=== PATIENT | female | born 1995 | race Caucasian/White ===

== ENCOUNTER → 2017-12-10 07:15 | Outpatient (CLI) | payer MEDICAID ==
[2015-03-12 04:56] VITALS: BMI 38.8
[~2017-12-10 07:15] MED LIST: HYDROCODON-ACE1 EAC7 PO; IBUPROFEN600 MG PO; PRENAVITE1 TAB PO
[2017-12-10 09:22] LABS: APPEARANCE SLT CLOUDY (CLEAR); BILIRUBIN NEGATIVE (NEGATIVE); COLOR YELLOW (YELLOW); GLUCOSE NEGATIVE (NEGATIVE); KETONE NEGATIVE (NEGATIVE); NITRITE NEGATIVE (NEGATIVE); PROTEIN NEGATIVE (NEGATIVE); UROBILINOGEN NORMAL (NORMAL); WHITE CELLS - URINE 0-5 /hpf (0-5)
[2017-12-10 09:23] LABS: BACTERIA MODERATE /hpf (NONE SEEN); GRANULAR CAST OCC /lpf (NONE SEEN); MUCUS <1+ /lpf (NONE SEEN)
== END | disposition home or self-care (01) ==
LOC: D.LDO 07:15
PROVIDERS: Obstetrics & Gynecology
DX: O21.9 Vomiting of pregnancy, unspecified (principal); Z3A.00 Weeks of gestation of pregnancy not specified

== ENCOUNTER 2018-01-20 05:26 | Outpatient (CLI) | payer MEDICAID ==
[~2018-01-20] VITALS: Ht 160 cm; Wt 103.6 kg
[2018-01-20] MEDS ORDERED: ACETAMINOPHEN500 M1 PO (05:52)
[2018-01-20 06:24] VITALS: BP 122/71; Ht 160 cm; Wt 103.6 kg
[2018-01-20 06:46] LABS: HEMATOCRIT 35.6 % (36.0-48.0); HEMOGLOBIN 12.2 g/dL (12-16); MCH 31.5 pg (26.0-34.0); MCHC 34.3 g/dL (31.0-37.0); MEAN PLATELET VOLUME 11.2 fL (7.4-10.4); RBC 3.87 10x6/uL (4.00-5.40); RDW 13.6 % (11.5-14.5); WBC 7.5 10x3/uL (4.8-10.8)
[2018-01-20 07:25] LABS: APPEARANCE CLOUDY (CLEAR); BILIRUBIN NEGATIVE (NEGATIVE); COLOR YELLOW (YELLOW); GLUCOSE NEGATIVE (NEGATIVE); KETONE NEGATIVE (NEGATIVE); NITRITE NEGATIVE (NEGATIVE); PROTEIN NEGATIVE (NEGATIVE); UROBILINOGEN NORMAL (NORMAL)
[2018-01-20 07:26] LABS: BACTERIA MODERATE /hpf (NONE SEEN); MUCUS <1+ /lpf (NONE SEEN)
[2018-01-21 06:15] LABS: RAPID PLASMA REAGIN Non Reactive (Non Reactive)
== END 2018-01-20 18:30 | disposition home or self-care (01) ==
LOC: UNDOADMIN 05:26 → D.OPS 05:26 → D.LD 05:26 → D.OPS 18:30 → D.LD 18:30 → EDSTATUS 01-21 12:25
PROVIDERS: Obstetrics & Gynecology
DX: O61.0 Failed medical induction of labor (principal); Z3A.39 39 weeks gestation of pregnancy

== ENCOUNTER → 2018-01-25 10:16 | Outpatient (CLI) | payer MEDICAID ==
[2018-01-20 06:24] VITALS: BMI 40.4
[~2018-01-25 10:16] MED LIST changes: +ACETAMINOPHEN500 M1 PO
== END | disposition home or self-care (01) ==
LOC: D.LDO 10:16
DX: O26.893 Other specified pregnancy related conditions, third trimester (principal); Z3A.39 39 weeks gestation of pregnancy

== ENCOUNTER → 2018-01-28 08:28 | Outpatient (CLI) | payer MEDICAID ==
[2018-01-20 06:24] VITALS: BMI 40.4
== END | disposition home or self-care (01) ==
LOC: D.LDO 08:28
DX: O26.893 Other specified pregnancy related conditions, third trimester (principal); Z3A.40 40 weeks gestation of pregnancy

== ENCOUNTER 2018-02-01 02:00 | Inpatient (IN) | payer MEDICAID ==
[~2018-02-01] VITALS: Ht 160 cm; Wt 103.4 kg
[2018-02-01 05:36] VITALS: BP 126/71; Ht 160 cm; Wt 103.4 kg
[2018-02-01 06:01] LABS: HEMATOCRIT 38.3 % (36.0-48.0); HEMOGLOBIN 13.2 g/dL (12-16); MCH 31.6 pg (26.0-34.0); MCHC 34.5 g/dL (31.0-37.0); MCV 91.6 fL (80.0-100.0); MEAN PLATELET VOLUME 11.5 fL (7.4-10.4); RBC 4.18 10x6/uL (4.00-5.40); RDW 13.4 % (11.5-14.5); WBC 7.7 10x3/uL (4.8-10.8)
[2018-02-01 06:43] LABS: APPEARANCE CLOUDY (CLEAR); COLOR YELLOW (YELLOW)
[2018-02-01 06:44] LABS: BILIRUBIN NEGATIVE (NEGATIVE); GLUCOSE NEGATIVE (NEGATIVE); KETONE NEGATIVE (NEGATIVE); NITRITE NEGATIVE (NEGATIVE); PROTEIN NEGATIVE (NEGATIVE); SPECIFIC GRAVITY 1.015 (1.005-1.020); UROBILINOGEN NORMAL (NORMAL)
[2018-02-01 06:48] LABS: BACTERIA MANY /hpf (NONE SEEN); EPITHELIAL CELLS 25-50 /hpf (0-5); MUCUS <1+ /lpf (NONE SEEN); RED CELLS - URINE 0-5 /hpf (0-5); WHITE CELLS - URINE 25-50 /hpf (0-5)
[2018-02-02 07:29] LABS: RAPID PLASMA REAGIN Non Reactive (Non Reactive)
[2018-02-02 16:49] VITALS: BP 120/73
[2018-02-03 07:27] VITALS: BP 121/72
[2018-02-03 08:25] LABS: BASOPHILS 0.1 % (0-2); EOSINOPHILS 0.5 % (0-7); HEMATOCRIT 35.5 % (36.0-48.0); IMMATURE GRANULOCYTES 0.6 % (0-5); LYMPHOCYTES 24.1 % (15-50); MCH 31.6 pg (26.0-34.0); MCHC 33.8 g/dL (31.0-37.0); MCV 93.4 fL (80.0-100.0); MEAN PLATELET VOLUME 10.9 fL (7.4-10.4); MONOCYTES 6.3 % (2-11); NEUTROPHILS 68.4 % (40-80); PLATELET COUNT 133 10x3/uL (130-400); RDW 13.6 % (11.5-14.5); WBC 8.5 10x3/uL (4.8-10.8)
[2018-02-03] MEDS ORDERED: IBUPROFEN600 MG PO (17:32)
[2018-02-03] MEDS ORDERED: HYDROCODON-ACE1 EAC7 PO (17:32)
== END 2018-02-03 17:59 | disposition home or self-care (01) | DRG 775 ==
LOC: D.LD 02:00 → D.WS 02-02 23:00
PROVIDERS: Obstetrics & Gynecology
PROC: 3E033VJ Introduction of Other Hormone into Peripheral Vein, Percutaneous Approach (ICD-10-PCS; 2018-02-01)
PROC: 10E0XZZ Delivery of Products of Conception, External Approach (ICD-10-PCS; principal; 2018-02-02)
PROC: 10907ZC Drainage of Amniotic Fluid, Therapeutic from Products of Conception, Via Natural or Artificial Opening (ICD-10-PCS; 2018-02-02)
DX: O99.344 Other mental disorders complicating childbirth (principal); Z3A.41 41 weeks gestation of pregnancy; Z37.0 Single live birth; O26.893 Other specified pregnancy related conditions, third trimester; Z67.91 Unspecified blood type, Rh negative

== ENCOUNTER 2018-03-25 05:35 | Day surgery (SDC) | payer MEDICAID ==
[2018-03-23 14:55] LABS: HEMOGLOBIN 14.5 g/dL (12-16); MCH 30.8 pg (26.0-34.0); MCHC 34.5 g/dL (31.0-37.0); MCV 89.2 fL (80.0-100.0); RBC 4.71 10x6/uL (4.00-5.40); RDW 12.5 % (11.5-14.5); WBC 6.4 10x3/uL (4.8-10.8)
[2018-03-23 15:09] LABS: PLATELET COUNT 200 10x3/uL (130-400)
[2018-03-23 17:11] LABS: LYMPHOCYTES 59 % (15-50); NEUTROPHILS 41 % (40-80); PLATELET ESTIMATE NORMAL
[~2018-03-25] VITALS: Ht 160 cm; Wt 95.3 kg
--- NOTE | ~2018-03-25 | OP ---
PATIENT NAME: REBA PAULINO MEDICAL RECORD: [id number] :89 LOCATION:[facility] ADMISSION DATE: SURGEON: HENRIK GUZMAN MD DATE OF OPERATION: 03/25/2018 PREOPERATIVE DIAGNOSIS: Multiparity, patient desires permanent sterility. POSTOPERATIVE DIAGNOSIS: Multiparity, patient desires permanent sterility. PROCEDURE: Laparoscopic tubal ligation via bipolar cautery. SURGEON: Henrik Guzman MD ANESTHESIA: General. INTRAVENOUS FLUIDS: Per anesthesia record. SPECIMENS: None. FINDINGS: Grossly normal uterus, fallopian tubes, and ovaries. COMPLICATIONS: None apparent. SPECIMENS: None. PROCEDURE IN DETAIL: The patient was taken to the operating room, where general anesthesia was achieved without any difficulty. The patient was then prepped and draped in normal sterile fashion in the dorsal lithotomy position in the [facility]. At this point, the bladder was drained of approximately 100 cc of clear yellow urine and a sponge stick was placed into the vagina for uterine elevation. Attention was then turned to the umbilicus, where a 5-mm skin incision was made and the bladeless 5-mm trocar was then used to enter the intraperitoneal space under direct visualization. The patient was insufflated. Opening pressure was consistent with intraperitoneal placement. The introducer was removed and intraperitoneal placement was confirmed with the laparoscope. At this point, a 5-mm incision was made in the midline approximately 5 cm above the pubic symphysis and a second 5-mm bladeless trocar was introduced into the intraperitoneal space under direct visualization of the laparoscope. Survey of the abdomen and the pelvis was performed. The bipolar cautery was then used to cauterize approximately a 5-6 cm section of the mid portion of the fallopian tube bilaterally. Good hemostasis was noted. No pelvic pathology was noted. The instruments were removed. The patient was desufflated. The skin incisions were repaired with 3-0 Monocryl in an interrupted fashion. Sponge stick was removed from the vagina. The patient tolerated the procedure well, was transported to postanesthesia recovery stable without incident. TRANSINT:[id number] Voice Confirmation ID: [id number] DOCUMENT ID: [id number] OPERATIVE REPORT [id number] LORAHENRIK DARNELL MD at 1701 CC: [id number] DICTATION DATE: 04/03/18907 DYE FEEDER: 04/03/18927 [facility] 03/25/18 [id number] [place] [address]
[2018-03-25 06:24] VITALS: BP 119/85; BMI 37.2
[2018-03-25 06:40] VITALS: Ht 160 cm; Wt 95.3 kg
[2018-03-25 06:44] LABS: HCG URINE NEGATIVE (NEGATIVE)
== END 2018-03-25 11:30 | disposition home or self-care (01) ==
LOC: D.OPS 05:35 → D.PAN 08:15 → D.OPS 08:30 → D.PAN 08:30 → D.OPS 11:30
PROVIDERS: Obstetrics & Gynecology
DX: Z30.2 Encounter for sterilization (principal); Z01.812 Encounter for preprocedural laboratory examination